=== PATIENT | female | born 1995 | race Caucasian/White ===

== ENCOUNTER → 2016-11-19 | Outpatient (CLI) | payer OTHER ==
--- NOTE | 2016-11-19 14:36 | US ---
Ultrasound Venous Duplex/Doppler left Leg History: M 79.505, pain, factor V Leiden deficiency. Findings: Ultrasound venous duplex and Doppler imaging of the common femoral vein, femoral vein, pop liteal vein, calf veins, greater saphenous vein origin, and contralateral common femoral vein demonst rates normal compressibility, color flow, and Doppler flow without deep venous thrombosis. Impression: No deep venous thrombosis left leg.
== END ==
LOC: BRMIMAGING 13:47
PROVIDERS: ATTEND Internal Medicine
DX: M79.605 Pain in left leg (principal); D68.51 Activated protein C resistance
CPT/HCPCS: 93971-PO

== ENCOUNTER → 2017-12-29 | Outpatient (CLI) | payer OTHER | LOC: BMCIMAGING 13:47 | PROVIDERS: ATTEND Radiology Diagnostic Radiology | DX: M79.604 Pain in right leg (principal) ==

== ENCOUNTER 2018-01-16 15:29 | Emergency (ER) | payer OTHER ==
--- NOTE | 2018-01-16 15:49 | EDPHY ---
HPI/HX/ROS/PE/MDM Narrative: CHIEF COMPLAINT: Left leg swelling and pain HPI: The patient is a 22 y/o female complaining of left leg pain and swelling for the last [id number] following a long flight to [facility]. She has "half " Factor V Leiden deficiency. Her pain is localized to her left medial thigh and is worse with palpation. No calf pain, leg discoloration, chest pain, or shortness of breath. She has had prior ultrasounds for similar symptoms after traveling, but has never been diagnosed with a blood clot. She does not take any medication for this. Her mother has a clotting disorder and has had blood clots. REVIEW OF SYSTEMS: Aside from elements discussed in the HPI, a comprehensive 10-point review of systems was reviewed and is negative. PMH: Partial Factor V Leiden Deficiency SOCIAL HISTORY: Flew back from [facility] recently. Lives in [place]. [employer] student. PHYSICAL EXAM: General:Patient is alert, in no acute distress. ENT:Eyes are normal to inspection. ENT inspection normal. Neck: Normal inspection. Full range of motion. Respiratory:No respiratory distress. Breath sounds normal bilaterally. Cardiovascular: Regular rate and rhythm. Strong peripheral pulses. Normal cap refill. Abdomen:The abdomen is nontender to palpation. There are no peritoneal signs. Back: Normal to inspection. No tenderness to palpation. Skin: Normal color. No rash. Warm and dry. Extremities: Normal appearance. Tenderness to left medial thigh. Calves are soft and nontender. Full range of motion. Neuro: Oriented x3. Normal motor function. Normal sensory function. ED Course: This is a healthy 22 y/o female with a partial Factor V Leiden Deficiency who presents with a 10-day history of left medial thigh pain in the setting of recent international flights. She is not anticoagulated and has not been previously diagnosed with a blood clot. Apart from localized tenderness at the site, she has a normal exam. Plan for US to evaluate for DVT. Left leg US: negative. Patient will be discharged with standard leg pain care and follow up instructions. I also recommended taking an aspirin prior to long travel as clot prophylaxis and to discuss this with her PCP at her next visit. Return precautions discussed. She is comfortable with plan for discharge. - Data Points Imaging: Discussed imaging studies w/ call center specialist Radiologist General Time Seen by Provider: 01/16/18 15:42 Initial Vital Signs: Initial Vital Signs Temperature (C) 36.4 C 01/16/18 15:35 Heart Rate 90 01/16/18 15:35 Respiratory Rate 16 01/16/18 15:35 Blood Pressure 135/79 H 01/16/18 15:35 O2 Sat (%) 99 01/16/18 15:35 O2 Delivery Mode Room Air Allergies/Adverse Reactions: No Known Allergies Allergy (Unverified 01/16/18 15:34) Home Medications: Medication Instructions Recorded NK [No Known Home Meds] 01/16/18 Departure - Departure Disposition: Home, Routine, Self-Care Clinical Impression: Leg pain, left Condition: Good Instructions: Leg Pain (ED) Additional Instructions: I recommend taking a full strength aspirin prior to long flights/travel as clot prophylaxis. Please discuss this with your primary care provider at your next visit. Return to the ED for chest pain, shortness of breath, severe pain or swelling, or other worsening of condition. Referrals: Dixie Ellis MD [Primary Care Provider] - As per Instructions Report Scribed for: Ronan Ortez Report Scribed by: Joanie Lobo Date of Report: 01/16/18 Time of Report: 15:49 Physician Review and Approval Statement: Portions of this note were transcribed by an ED scribe. I personally performed the history, physical exam, and medical decision making; and confirm the accuracy of the information in the transcribed note.
[2018-01-16 16:15] VITALS: BP 112/80; PULSE 80; RESP 18; TEMP 98.6; O2SAT 97
== END 2018-01-16 16:14 | disposition home or self-care (01) ==
DX: M79.605 Pain in left leg (principal)